=== PATIENT | male | born 1975 | race Hispanic/Latino ===

== ENCOUNTER 2021-11-01 06:01 | Emergency (ER) | payer SELFPAY ==
[2021-11-01 07:17] LABS: Absolute Lymphocytes (CBC) 2.1 K/uL (0.7-4.9); Hematocrit 42.1 % (39.6-49.0); Lymphocytes % 23.5 % (15.3-44.8); RBC Red Blood Cell Count 4.76 M/uL (4.33-5.43)
[2021-11-01] MEDS ORDERED: ONDANSETRON 4 MG/2 ML VIAL ONE (07:30)
[2021-11-01] MEDS ORDERED: MORPHINE 4 MG/ML SYR ONE (07:30)
[2021-11-01 07:35] LABS: BUN Blood Urea Nitrogen 6 mg/dL (7-18); Bicarbonate 25 mmol/L (21-32); Glucose Level 294 mg/dL (74-106); Potassium 4.1 mmol/L (3.5-5.1); Sodium Level 135 mmol/L (136-145)
--- NOTE | 2021-11-01 08:21 | RAD REPORT ---
EXAM DESCRIPTION: CT - Chest For Pe Angio - 11/01/2021 8:08 am CLINICAL HISTORY: DYSPNEA COMPARISON: Chest Single View dated 11/01/2021 TECHNIQUE: Dynamically enhanced 3 mm thick images of the chest were obtained during administration o f approximately 150mL Isovue 370 IV contrast. Coronal and oblique MIP reconstruction images were gene rated and reviewed. Exam utilizes a protocol to evaluate the pulmonary arterial tree. All CT scans are performed using dose optimization technique as appropriate and may include automated exposure control or mA/KV adjustment according to patient size. FINDINGS: No pulmonary emboli are identified. The aorta as imaged shows no acute or suspicious finding. No pericardial thickening or effusion. Parenchymal opacification is present radiating from the left infrahilar region into the posterior gut ter on the left. Bronchial tree opacification is also present in this small focal abnormality. This h as any elongated conical shape rather than a masslike configuration. Focal infiltrate with segmental bronchial opacification is most likely a small area of infiltrate. Bronchial wall thickening and bron chial lumen opacification is seen as well in the medial left lung base. Slight bronchial wall thicken ing seen elsewhere in the lower lung duarte. Viral infiltrate is favored. Bacterial pneumonia is less er in likelihood. No pleural effusion or pleural thickening. No pleural based mass. No mediastinal or hilar suspicious masses. No chest wall masses or abnormal axillary lymphadenopathy. IMPRESSION: No pulmonary emboli identified. Bilateral lower lobe segmental bronchial wall thickening and bronchial lumen opacificationalong with patchy airspace opacities in the posterior gutter on the left. Viral infiltrate with infectious/inflammatory debris within the bronchial lumen is favored over bacte rial pneumonia. Correlation is needed with clinical and laboratory findings.
--- NOTE | 2021-11-01 08:54 | RAD REPORT ---
EXAM DESCRIPTION: RAD - Chest Single View - 11/01/2021 6:55 am CLINICAL HISTORY: Cough;Congestion;Dyspnea COMPARISON: None TECHNIQUE: AP portable chest image was obtained 11/01/2021 6:55 am . FINDINGS: Lungs are clear. Heart and vasculature are normal. No measurable pleural effusion and no p neumothorax. No acute bony abnormality seen. No acute aortic findings suspected. IMPRESSION: No acute cardiopulmonary process.
[2021-11-01 08:59] LABS: SARS-COV-2 RT PCR NEGATIVE (NEGATIVE)
--- NOTE | 2021-11-01 09:10 | EDPHYS ---
Physician Documentation [facility] Name: Junior Bower Age: 46 yrs Sex: Male : 1975 Arrival Date: 11/01/2021 Time: 06:07 Bed 8 Private MD: ED Physician Musa Oakley HPI: 11/01 06:31 This 46 yrs old Male presents to ER via Wheelchair with complaints of kb Breathing Difficulty. 06:29 Pt reports fever, chills, cough and congestion since last week, shortness of breath for kb 3 days. States the shortness of breath was worse this morning. No fever for 3 days. Also reports decreased appetite and body aches. 06:31 The patient has shortness of breath at rest. Onset: The symptoms/episode began/occurred kb 3 day(s) ago. Duration: The symptoms are continuous. The patient's shortness of breath is aggravated by exertion, is alleviated by nothing. Associated signs and symptoms: Pertinent positives: non-productive cough, fever. Severity of symptoms: At their worst the symptoms were moderate in the emergency department the symptoms are unchanged. The patient has not experienced similar symptoms in the past. The patient has not recently seen a physician. Historical: - Allergies: 06:23 Aspirin; lp1 - Home Meds: 06:23 Metformin Oral [Active]; Lisinopril Oral [Active]; Lovastatin Oral [Active]; lp1 - PMHx: 06:23 Diabetes mellitus; Hypercholesterolemia; Hypertensive disorder; lp1 - PSHx: 06:23 None; lp1 - Immunization history:: Adult Immunizations up to date. - Social history:: Smoking status: Patient reports the use of cigarette tobacco products, denies chronic smoking, but will smoke occasionally. ROS: 06:31 Abdomen/GI: Negative for abdominal pain, nausea, vomiting, diarrhea, and constipation. kb 06:31 Constitutional: Positive for body aches, chills, fatigue, fever, malaise, poor PO intake. 06:31 ENT: Positive for sinus congestion. 06:31 Respiratory: Positive for cough, dyspnea on exertion, shortness of breath, Negative for hemoptysis, orthopnea, pleurisy, sputum production, wheezing. 06:31 All other systems are negative. Exam: 06:32 Constitutional: This is a well developed, well nourished patient who is awake, alert, kb and in no acute distress. Head/Face: Normocephalic, atraumatic. ENT: Moist Mucous membranes Cardiovascular: Regular rate and rhythm with a normal S1 and S2. No gallops, murmurs, or rubs. No pulse deficits. Respiratory: Respirations even and unlabored. No increased work of breathing. Talking in full sentences Abdomen/GI: Soft, non-tender. No distention Skin: Warm, dry with normal turgor. Normal color. MS/ Extremity: Pulses equal, no cyanosis. Neurovascular intact. Full, normal range of motion. Neuro: Awake and alert, GCS 15, oriented to person, place, time, and situation. Moves all extremities. Normal gait. Psych: Awake, alert, with orientation to person, place and time. Behavior, mood, and affect are within normal limits. 06:38 ECG was reviewed by the Attending Physician. Vital Signs: 06:21 BP 155 / 105; Pulse 87; Resp 22; Temp 98.4(O); Pulse Ox 98% on R/A; Weight 95.25 kg lp1 (R); Height 5 ft. 7 in. (170.18 cm); Pain 0/10; 07:18 BP 142 / 94; Pulse 86; Resp 25; Pulse Ox 96% on R/A; Pain 10/10; ag7 08:12 Pain 0/10; ag7 09:31 BP 138 / 90; Pulse 84; Resp 25; Pulse Ox 96% on R/A; Pain 0/10; ag7 06:21 Body Mass Index 32.89 (95.25 kg, 170.18 cm) lp1 MDM: 06:18 Patient medically screened. 06:31 Data reviewed: vital signs, nurses notes. Data interpreted: Pulse oximetry: on room air kb is 98 %. Interpretation: normal. 09:09 Counseling: I had a detailed discussion with the patient and/or guardian regarding: the kb historical points, exam findings, and any diagnostic results supporting the discharge/admit diagnosis, lab results, radiology results, the need for outpatient follow up, a family practitioner, to return to the emergency department if symptoms worsen or persist or if there are any questions or concerns that arise at home. 11/01 06:26 Order name: COVID-19/FLU A+B (Document "Date of Onset" if Symptomatic) 11/01 06:26 Order name: CBC with Diff; Complete Time: 07:22 kb 11/01 06:26 Order name: Basic Metabolic Panel; Complete Time: 07:40 kb 11/01 06:26 Order name: D-Dimer; Complete Time: 07:40 kb 11/01 06:26 Order name: Troponin HS; Complete Time: 07:40 kb 11/01 06:26 Order name: COVID-19/FLU A+B; Complete Time: 08:59 EDMS 11/01 06:26 Order name: IV Start; Complete Time: 06:49 kb 11/01 06:26 Order name: EKG; Complete Time: 06:26 kb 11/01 06:26 Order name: EKG - Nurse/Tech; Complete Time: 06:49 kb 11/01 06:31 Order name: Chest Single View XRAY; Complete Time: 08:57 kb 11/01 07:27 Order name: EKG Electrocardiogram EDMS 11/01 07:29 Order name: CT Chest For PE Angio; Complete Time: 08:22 kb 11/01 06:58 Order name: Labs - recollect needed: recollect all labs; Complete Time: 07:03 bd EC:38 Rate is 80 beats/min. Rhythm is regular. Left axis deviation noted. MO interval is kb normal at 160 msec. QRS interval is normal at 80 msec. QT interval is normal at 376 msec. Administered Medications: 07:35 Drug: Zofran (Ondansetron) 4 mg Route: IVP; Infused Over: 2 mins; Site: right ag7 antecubital; 08:12 Follow up: Response: No adverse reaction ag 07:36 Drug: morphine 4 mg {Note: RASS 1.} Route: IVP; Site: right antecubital; [facility] [place] 08:12 Follow up: Pain 0/10 Adult; Response: No adverse reaction; Pain is decreased; RASS: ag7 Alert and Calm (0) Disposition Summary: 11/01/21 09:09 Discharge Ordered Location: Home kb Condition: Stable kb Diagnosis - Acute bronchitis, unspecified kb Followup: kb - With: Emergency Department - When: As needed - Reason: Worsening of condition Followup: kb - With: Private Physician - When: 2 - 3 days - Reason: Recheck today's complaints, Continuance of care, Re-evaluation by your physician Discharge Instructions: - Discharge Summary Sheet kb - Acute Bronchitis, Adult, [id number] kb Forms: - Medication Reconciliation Form kb - Thank You Letter kb - Antibiotic Education kb - Prescription Opioid Use kb - Work release form ss Prescriptions: - albuterol sulfate 90 mcg/actuation Inhalation HFA aerosol inhaler - inhale 2 puff by INHALATION route every 4-6 hours As needed; 1 Inhaler; kb Refills: 0, Product Selection Permitted - Ibuprofen 800 mg Oral Tablet - take 1 tablet by ORAL route every 8 hours As needed take with food; 30 tablet; kb Refills: 0, Product Selection Permitted - Prednisone 20 mg Oral Tablet - take 1 tablet by ORAL route once daily for 5 days; 5 tablet; Refills: 0, kb Product Selection Permitted Addendum: 11/03/2021 22:49 Co-signature as Attending Physician, Musa Oakley MD. [facility] Signatures: Dispatcher [employer] EDMS Neeru Barrios, WERO-C PROFILE TRIMMER-Earlene Hinton Laura RN RN lp1 Musa Oakley MD MD mh7 Roya Waldron RN RN ag7 Corrections: (The following items were deleted from the chart) 11/01 06:31 06:29 Pt reports fever, chills, cough and congestion since last week, shortness of kb breath for 3 days. States the shortness of breath was worse this morning. No fever for 3 days. Also reports decreased appetite. . kb
--- NOTE | 2021-11-01 09:10 | ER ---
Nurse's Notes [facility] Name: Junior Bower Age: 46 yrs Sex: Male : 1975 Arrival Date: 11/01/2021 Time: 06:07 Bed 8 Private MD: Diagnosis: Acute bronchitis, unspecified Presentation: 11/01 06:21 Chief complaint: Patient states: Progressive shortness of breath x 2 days, reports lp1 previously having flu-like symptoms of fever, chills, fatigue, N/V/D. Coronavirus screen: chills, diarrhea, fatigue, fever, nausea, shortness of breath, vomiting. Ebola Screen: No symptoms or risks identified at this time. Initial Sepsis Screen: Does the patient meet any 2 criteria? RR > 20 per min. Does the patient have a suspected source of infection? No. Patient's initial sepsis screen is negative. Risk Assessment: Do you want to hurt yourself or someone else? Patient reports no desire to harm self or others. Onset of symptoms was November 01, 2021. 06:21 Method Of Arrival: Wheelchair lp1 06:21 Acuity: RANI 3 lp1 Triage Assessment: 07:09 General: Appears uncomfortable, Behavior is calm, cooperative. Respiratory: Onset: The as6 symptoms/episode began/occurred , the patient has mild shortness of breath. Historical: - Allergies: 06:23 Aspirin; lp1 - Home Meds: 06:23 Metformin Oral [Active]; Lisinopril Oral [Active]; Lovastatin Oral [Active]; lp1 - PMHx: 06:23 Diabetes mellitus; Hypercholesterolemia; Hypertensive disorder; lp1 - PSHx: 06:23 None; lp1 - Immunization history:: Adult Immunizations up to date. - Social history:: Smoking status: Patient reports the use of cigarette tobacco products, denies chronic smoking, but will smoke occasionally. Screenin:08 Abuse screen: Denies threats or abuse. Denies injuries from another. Nutritional as6 screening: No deficits noted. Tuberculosis screening: No symptoms or risk factors identified. Fall Risk None identified. Assessment: 06:30 General: Appears uncomfortable, Behavior is calm, cooperative. Pain: Complains of pain as6 in generalized body aches. Neuro: Level of Consciousness is awake, alert, obeys commands, Oriented to person, place, time, situation. Cardiovascular: Reports chest pain, Rhythm is sinus rhythm. Respiratory: Reports shortness of breath Airway is patent Trachea midline Respiratory effort is even, unlabored, Respiratory pattern is regular, symmetrical, Breath sounds are clear bilaterally. 07:15 Reassessment: No changes from previously documented assessment. Patient and/or family ag7 updated on plan of care and expected duration. Pain level reassessed. Patient is alert, oriented x 3, equal unlabored respirations, skin warm/dry/pink. Patient states symptoms have not improved. Vital Signs: 06:21 BP 155 / 105; Pulse 87; Resp 22; Temp 98.4(O); Pulse Ox 98% on R/A; Weight 95.25 kg lp1 (R); Height 5 ft. 7 in. (170.18 cm); Pain 0/10; 07:18 BP 142 / 94; Pulse 86; Resp 25; Pulse Ox 96% on R/A; Pain 10/10; ag7 08:12 Pain 0/10; ag7 09:31 BP 138 / 90; Pulse 84; Resp 25; Pulse Ox 96% on R/A; Pain 0/10; ag7 06:21 Body Mass Index 32.89 (95.25 kg, 170.18 cm) lp1 ED Course: 06:07 Patient arrived in ED. es 06:17 Neeru Barrios F[facility]-C [facility] kb 06:17 Musa Oakley MD is Attending Physician. kb 06:18 Leonides Farias, MELLY is Primary Nurse. as6 06:23 Triage completed. lp1 06:23 Arm band placed on. lp1 06:47 Inserted saline lock: 20 gauge in right antecubital area, using aseptic technique. as6 06:49 D-Dimer Sent. as6 06:49 Troponin HS Sent. as6 06:49 Basic Metabolic Panel Sent. as6 06:50 CBC with Diff Sent. as6 06:55 Chest Single View XRAY In Process Unspecified. EDMS 07:09 Placed in gown. Bed in low position. Call light in reach. Side rails up X2. Adult w/ as6 patient. surveillance system monitor on. Pulse ox on. NIBP on. 08:08 CT Chest For PE Angio In Process Unspecified. EDMS 09:33 IV discontinued, intact, bleeding controlled, No redness/swelling at site. Pressure ag7 dressing applied. Administered Medications: 07:35 Drug: Zofran (Ondansetron) 4 mg Route: IVP; Infused Over: 2 mins; Site: right ag7 antecubital; 08:12 Follow up: Response: No adverse reaction ag7 07:36 Drug: morphine 4 mg {Note: RASS 1.} Route: IVP; Site: right antecubital; ag7 08:12 Follow up: Pain 0/10 Adult; Response: No adverse reaction; Pain is decreased; RASS: ag7 Alert and Calm (0) Outcome: 09:09 Discharge ordered by MD. godoy 09:32 Discharged to home ag7 09:32 Condition: stable 09:32 Discharge instructions given to patient, Instructed on discharge instructions, follow up and referral plans. medication usage, Demonstrated understanding of instructions, follow-up care, medications, Prescriptions given X 3. 09:34 Patient left the ED. ag7 Signatures: Dispatcher [employer] Neeru Georges, WERO-C [employer]PER[employer]-Lesley Matthews Laura RN RN lp1 Leonides Farias RN RN as6 Roya Waldron, MELLY RN ag7
[2021-11-01 10:04] VITALS: TEMP 98.4
[2021-11-01 10:05] VITALS: O2SAT 96
[2021-11-01 10:07] VITALS: BP 138/90
== END 2021-11-01 09:34 | disposition home or self-care (01) ==
LOC: ER 06:01
DX: J20.9 Acute bronchitis, unspecified (principal); Z20.822 Contact with and (suspected) exposure to COVID-19; I10 Essential (primary) hypertension; E11.9 Type 2 diabetes mellitus without complications; E78.00 Pure hypercholesterolemia, unspecified; F17.210 Nicotine dependence, cigarettes, uncomplicated
CPT/HCPCS: 0240U; 36415; 71045; 71275; 80048; 84484; 85025; 85379; 93005; 96374; 96375; 99284; J2405; Q9967

== ENCOUNTER 2023-07-31 11:02 | Emergency (ER) | payer SELFPAY ==
--- NOTE | 2023-07-31 12:26 | RAD REPORT ---
EXAM DESCRIPTION: CT - Head Brain Wo Cont - 07/31/2023 12:19 pm CLINICAL HISTORY: SYNCOPE COMPARISON: Head Brain Wo Cont dated 12/06/2022 TECHNIQUE: All CT scans are performed using dose optimization technique as appropriate and may inclu de automated exposure control or mA/KV adjustment according to patient size. FINDINGS: No intracranial hemorrhage, hydrocephalus or extra-axial fluid collection.No areas of brai n edema or evidence of midline shift. Mild mucosal thickening within several of the ethmoid air cells and maxillary sinuses. The calvarium is intact. IMPRESSION: No acute intracranial abnormality.
[2023-07-31 13:58] LABS: Absolute Lymphocytes (CBC) 0.8 K/uL (0.7-4.9); Hematocrit 49.6 % (39.6-49.0); Lymphocytes % 5.1 % (15.3-44.8); MCV 89.8 fL (80-100); MPV 7.3 fL (7.6-11.3); Platelets 265 thou/uL (152-406); RBC Red Blood Cell Count 5.52 M/uL (4.33-5.43)
[2023-07-31 14:07] LABS: Protime INR 0.95
[2023-07-31 14:08] LABS: Specific Gravity 1.028 (1.005-1.030); Urine Bilirubin NEGATIVE (Negative); Urine Blood Negative (Negative); Urine Clarity Clear (Clear); Urine Color Light-Yellow (Yellow); Urine Glucose 4+ (Over) (Negative); Urine Protein NEGATIVE (Negative); Urine Urobilinogen Normal (Normal)
[2023-07-31 14:21] LABS: SARS-CoV-2 Antigen Rapid Res Negative (Negative)
[2023-07-31] MEDS ORDERED: ACETAMINOPHEN 500 MG TAB ONE (15:02)
[2023-07-31 15:09] LABS: Albumin 3.6 g/dL (3.4-5.0); Bilirubin Direct 0.1 mg/dL (0-0.2); Bilirubin Indirect, Calculated 0.3 mg/dL (0.2-0.8); Bilirubin Total 0.4 mg/dL (0.2-1.0); Magnesium 1.9 mg/dL (1.6-2.4); Potassium 4.4 mEq/L (3.5-5.1); Protein, Total 8.3 g/dL (6.4-8.2); Troponin High Sensitivity 4.2 pg/mL (<58.9)
--- NOTE | 2023-07-31 15:18 | EDPHYS ---
Physician Documentation [facility] Name: Junior Bower Age: 48 yrs Sex: Male : 1975 Arrival Date: 07/31/2023 Time: 11:02 Bed DX4 Private MD: ED Physician Sumit Lyles HPI: 07/31 12:13 This 48 yrs old Male presents to ER via Ambulatory with complaints of sp3 Weakness, Dizziness. 12:13 48-year-old male with history of diabetes, hyperlipidemia, hypertension presents from sp3 work for chief complaint generalized weakness, dizziness and near syncope. Patient states that he was getting up and walking he was feeling disoriented and felt like passing out. No actual syncope occurred. No medical prodrome reported including chest pain, headache, shortness of breath, or any other symptoms at this time. On review of systems, he denies fever, neck pain, shortness of breath, chest pain, abdominal pain, nausea, vomiting, diarrhea or any other symptoms. No known sick contacts or travel history reported.. Historical: - Allergies: 11:48 Aspirin; iw - PMHx: 11:48 diabetes mellitus; Hypercholesterolemia; Hypertensive disorder; iw - Immunization history:: Adult Immunizations up to date. - Social history:: Smoking status: Patient denies any tobacco usage or history of. Patient/guardian denies using alcohol. ROS: 12:14 Constitutional: Negative for fever, chills, and weight loss, Eyes: Negative for injury, sp3 pain, redness, and discharge, ENT: Negative for injury, pain, and discharge, Neck: Negative for injury, pain, and swelling, Cardiovascular: Negative for chest pain, palpitations, and edema, Respiratory: Negative for shortness of breath, cough, wheezing, and pleuritic chest pain, Abdomen/GI: Negative for abdominal pain, nausea, vomiting, diarrhea, and constipation, Back: Negative for injury and pain, MS/Extremity: Negative for injury and deformity, Skin: Negative for injury, rash, and discoloration, Allergy/Immunology: Negative for hives, rash, and allergies, Endocrine: Negative for neck swelling, polydipsia, polyuria, polyphagia, and marked weight changes, 12:14 All other systems are negative, Exam: 12:14 Constitutional: This is a well developed, well nourished patient who is awake, alert, sp3 and in no acute distress. Head/Face: Normocephalic, atraumatic. Eyes: Pupils equal round and reactive to light, extra-ocular motions intact. Lids and lashes normal. Conjunctiva and sclera are non-icteric and not injected. Cornea within normal limits. Periorbital areas with no swelling, redness, or edema. ENT: Nares patent. No nasal discharge, no septal abnormalities noted. External auditory canals are clear. Oropharynx with no redness, swelling, or masses, exudates, or evidence of obstruction, uvula midline. Mucous membranes moist. Neck: Trachea midline, no thyromegaly or masses palpated, and no cervical lymphadenopathy. Supple, full range of motion without nuchal rigidity, or vertebral point tenderness. No Meningismus. Chest/axilla: Normal chest wall appearance and motion. Nontender with no deformity. No lesions are appreciated. Cardiovascular: Regular rate and rhythm with a normal S1 and S2. No gallops, murmurs, or rubs. Normal PMI, no JVD. No pulse deficits. Respiratory: Lungs have equal breath sounds bilaterally, clear to auscultation and percussion. No rales, rhonchi or wheezes noted. No increased work of breathing, no retractions or nasal flaring. Abdomen/GI: Soft, non-tender, with normal bowel sounds. No distension or tympany. No guarding or rebound. No evidence of tenderness throughout. Back: No spinal tenderness. No costovertebral tenderness. Full range of motion. Skin: Warm, dry with normal turgor. Normal color with no rashes, no lesions, and no evidence of cellulitis. MS/ Extremity: Pulses equal, no cyanosis. Neurovascular intact. Full, normal range of motion. Neuro: Awake and alert, GCS 15, oriented to person, place, time, and situation. Cranial nerves II-XII grossly intact. Motor strength 5/5 in all extremities. Sensory grossly intact. Cerebellar exam normal. Normal gait. Psych: Awake, alert, with orientation to person, place and time. Behavior, mood, and affect are within normal limits. 15:08 ECG was reviewed by the Attending Physician. EKG demonstrates normal sinus rhythm at 97 sp3 bpm with normal intervals, normal QRS, normal axis, normal ST/T-segment's without evidence of acute ischemia. Vital Signs: 11:46 BP 146 / 102; Pulse 94; Resp 19; Temp 99; Pulse Ox 100% on R/A; iw 13:36 BP 154 / 95; Pulse 102; ld1 13:39 BP 140 / 89; Pulse 99; ld1 13:42 BP 140 / 101; Pulse 111; ld1 15:29 BP 136 / 78; Pulse 89; Resp 18; Temp 98.6(O); Pulse Ox 100% on R/A; ld1 MDM: 11:57 Patient medically screened. sp3 12:14 Data reviewed: vital signs, nurses notes. sp3 12:15 ED course: 48-year-old male with generalized weakness, near syncope. Differential sp3 diagnosis includes dehydration, viral syndrome, hypoglycemia, electrolyte abnormality, and too much less likelihood, acute coronary syndrome, DKA, TIA/CVA spectrum, among others. Patient is clinically stable with normal vital signs other than mild hypertension. Work-up will include CT scan of the head, EKG, laboratory values, urine analysis and general observation. We will add any indicated interventions and disposition accordingly once work-up is complete.. 15:17 ED course: Patient positive for flu B. Remainder of work-up negative. We will safely sp3 discharge patient home at this time.. 12 12:02 Order name: Basic Metabolic Panel; Complete Time: 15:15 sp3 07/31 12:02 Order name: CBC with Diff sp3 07/31 12:02 Order name: Hepatic Function; Complete Time: 15:15 sp3 07/31 12:02 Order name: Magnesium; Complete Time: 15:15 sp3 07/31 12:02 Order name: Protime (+inr); Complete Time: 14:46 sp3 07/31 12:02 Order name: Ptt, Activated; Complete Time: 14:46 sp3 07/31 12:02 Order name: Troponin High Sensitivity; Complete Time: 15:15 sp3 07/31 12:02 Order name: Urinalysis w/ reflexes; Complete Time: 14:46 sp3 07/31 12:15 Order name: Flu; Complete Time: 14:46 sp3 07/31 12:15 Order name: SARS RAPID; Complete Time: 14:46 sp3 07/31 12:02 Order name: CT Head Brain wo Cont; Complete Time: 12:27 sp3 07/31 12:02 Order name: EKG; Complete Time: 12:03 sp3 07/31 12:02 Order name: EKG - Nurse/Tech; Complete Time: 13:53 sp3 07/31 12:02 Order name: IV Saline Lock; Complete Time: 13:55 sp3 07/31 12:02 Order name: Labs collected and sent; Complete Time: 13:53 sp3 07/31 12:02 Order name: NPO; Complete Time: 13:27 sp3 07/31 12:02 Order name: Orthostatics; Complete Time: 13:53 sp3 07/31 14:24 Order name: Labs - recollect needed: recollect green top; Complete Time: 14:42 bd Administered Medications: 14:51 Drug: Acetaminophen PO 1000 mg PO once Route: PO; ld1 Disposition Summary: 07/31/23 15:17 Discharge Ordered Notes: Location: Home sp3 Condition: Stable sp3 Diagnosis - Influenza B, generalized weakness sp3 Followup: sp3 - With: Private Physician - When: Upon discharge from the Emergency Department - Reason: Continuance of care Discharge Instructions: - Discharge Summary Sheet sp3 - Influenza, Adult sp3 Forms: - Work release form hb - Medication Reconciliation Form sp3 - Thank You Letter sp3 - Antibiotic Education sp3 - Prescription Opioid Use sp3 - Patient Portal Instructions sp3 - Leadership Thank You Letter sp3 Signatures: Dispatcher [employer] Earlene Ortiz Irene, RN Irais Kwon RN RN ld1 Sumit Lyles MD MD sp3
--- NOTE | 2023-07-31 15:18 | ER ---
Nurse's Notes [facility] Name: Junior Bower Age: 48 yrs Sex: Male : 1975 Arrival Date: 07/31/2023 Time: 11:02 Bed DX4 Private MD: Diagnosis: Influenza B, generalized weakness Presentation: 07/31 11:46 Chief complaint: Patient states: feels real weak, body aches, fatigue, started this iw morning , denies cough, cold or congestion , yesterday he felt like his left arm was asleep , now it feels normal, he feels like he can't walk because his right arm and leg hurts. Coronavirus screen: Client presents with at least one sign or symptom that may indicate coronavirus-19. Ebola Screen: Patient negative for fever greater than or equal to 101.5 degrees Fahrenheit, and additional compatible Ebola Virus Disease symptoms Patient denies exposure to infectious person. Patient denies travel to an Ebola-affected area in the 21 days before illness onset. No symptoms or risks identified at this time. Risk Assessment: Do you want to hurt yourself or someone else? Patient reports no desire to harm self or others. 11:46 Method Of Arrival: Ambulatory iw 11:46 Acuity: RANI 3 iw 15:30 Initial Sepsis Screen: Does the patient meet any 2 criteria? No. Patient's initial ld1 sepsis screen is negative. Does the patient have a suspected source of infection? No. Patient's initial sepsis screen is negative. Onset of symptoms was July 31, 2023. Historical: - Allergies: 11:48 Aspirin; iw - PMHx: 11:48 diabetes mellitus; Hypercholesterolemia; Hypertensive disorder; iw - Immunization history:: Adult Immunizations up to date. - Social history:: Smoking status: Patient denies any tobacco usage or history of. Patient/guardian denies using alcohol. Screenin:42 [facility] ED Fall Risk Assessment (Adult) History of falling in the last 3 months, ld1 including since admission No falls in past 3 months (0 pts). Abuse screen: Denies threats or abuse. Denies injuries from another. Nutritional screening: No deficits noted. Tuberculosis screening: No symptoms or risk factors identified. Assessment: 15:29 Reassessment: No changes from previously documented assessment. Patient and/or family ld1 updated on plan of care and expected duration. Pain level reassessed. Patient is alert, oriented x 3, equal unlabored respirations, skin warm/dry/pink. General: Appears in no apparent distress. comfortable, Behavior is calm, cooperative, appropriate for age. Pain: Denies pain. Neuro: Level of Consciousness is awake, alert, obeys commands, Oriented to person, place, time, situation. Cardiovascular: Capillary refill < 3 seconds Patient's skin is warm and dry. Respiratory: Airway is patent Respiratory effort is even, unlabored. GI: Abdomen is flat, non-distended. : No signs and/or symptoms were reported regarding the genitourinary system. EENT: No signs and/or symptoms were reported regarding the EENT system. Derm: No signs and/or symptoms reported regarding the dermatologic system. Musculoskeletal: No signs and/or symptoms reported regarding the musculoskeletal system. Vital Signs: 11:46 BP 146 / 102; Pulse 94; Resp 19; Temp 99; Pulse Ox 100% on R/A; iw 13:36 BP 154 / 95; Pulse 102; ld1 13:39 BP 140 / 89; Pulse 99; ld1 13:42 BP 140 / 101; Pulse 111; ld1 15:29 BP 136 / 78; Pulse 89; Resp 18; Temp 98.6(O); Pulse Ox 100% on R/A; ld1 ED Course: 11:09 Patient arrived in ED. mg5 11:10 Sumit Lyles MD is Attending Physician. sp3 11:48 Triage completed. iw 11:48 Arm band placed on. iw 12:19 CT Head Brain wo Cont In Process Unspecified. EDMS 13:42 Patient has correct armband on for positive identification. Placed in gown. Bed in low ld1 position. Call light in reach. Pulse ox on. NIBP on. Door closed. Noise minimized. 13:42 No provider procedures requiring assistance completed. ld1 13:53 SARS RAPID Sent. ld1 13:53 Flu Sent. ld1 13:53 Urinalysis w/ reflexes Sent. ld1 15:29 Irais Rodriguez, MELLY is Primary Nurse. ld1 15:30 Patient did not have IV access during this emergency room visit. ld1 Administered Medications: 14:51 Drug: Acetaminophen PO 1000 mg PO once Route: PO; ld1 Medication: 13:42 VIS not applicable for this client. ld1 Outcome: 15:17 Discharge ordered by . sp3 15:30 Discharged to home ambulatory, ld1 15:30 Condition: stable 15:30 Discharge instructions given to patient, family, Instructed on discharge instructions, follow up and referral plans. Demonstrated understanding of instructions, follow-up care, 15:31 Patient left the ED. ld1 Signatures: Dispatcher [employer] Jen Valle RN RN iw Irais Rodriguez RN RN ld1 Sumit Lyles MD MD sp3 Laila Bernardo mg5
[2023-07-31 15:33] LABS: Blood Morphology Comment NOT SEEN (NOT SEEN); Platelet Estimate ADEQ; White Blood Cell Scan OK (OK)
[2023-07-31 15:38] VITALS: O2SAT 100
[2023-07-31 15:43] VITALS: BP 136/78; TEMP 98.6
--- NOTE | 2023-08-01 13:29 | EKG ---
Test Date: 2023-07-31 Test Time: 13:37:43 [employer]: Jeffery SI MEASUREMENT RESULTS: Intervals: Rate: 97 IL: 148 QRSD: 74 QT: 352 QTc: 447 [place]: P: 60 IL: 148 QRS: -30 T: 52 INTERPRETIVE STATEMENTS: Normal sinus rhythm Left axis deviation Abnormal ECG Compared to ECG 12/06/2022 12:31:13 Left-axis deviation now present Electronically Signed On 08-01-23 13:26:52 [employer] by Raúl Botello
== END 2023-07-31 15:31 | disposition home or self-care (01) ==
LOC: ER 11:02
DX: J10.1 Influenza due to other identified influenza virus with other respiratory manifestations (principal); Z11.52 Encounter for screening for COVID-19
CPT/HCPCS: 36415; 70450; 80048; 80076; 81003; 83735; 84484; 85025; 85610; 85730; 87804; 87811; 93005; 99284